=== PATIENT | male | born 2000 | race Caucasian/White ===

== ENCOUNTER 2020-11-29 09:41 | Emergency (ER) | payer OTHER, SELFPAY ==
--- NOTE | ~2020-11-29 | XR_ITS ---
EXAMINATION: XR lumbar spine 2-3V DATE: 11/29/2020 10:55 INDICATION: Low back pain TECHNIQUE: Anteroposterior and lateral views of the lumbar spine, and cone-down lateral view of the l umbosacral junction were obtained. COMPARISON: 01/28/2010 FINDINGS: There is no fracture, dislocation, or subluxation. The vertebral body heights, alignment, a nd intervertebral disc spaces are normal. The paravertebral soft tissues are unremarkable. IMPRESSION: 1. No acute osseous abnormality. Reviewed, dictated and finalized at location B.
[2020-11-29 09:50] VITALS: BP 150/80; PULSE 75; RESP 16; TEMP 37.1; O2SAT 100
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
[2020-11-29 11:36] VITALS: BP 130/60; PULSE 85; RESP 17; O2SAT 100
== END 2020-11-29 11:37 | disposition home or self-care (01) ==
PROVIDERS: Emergency Provider Emergency Medicine; PCP Nurse Practitioner Family
DX: S39.012A Strain of muscle, fascia and tendon of lower back, initial encounter (principal); V43.52XA Car driver injured in collision with other type car in traffic accident, initial encounter
CPT/HCPCS: 72100; 99283

== ENCOUNTER 2023-02-10 00:53 | Emergency (ER) | payer SELFPAY ==
[2023-02-10 00:55] VITALS: BP 122/60; PULSE 76; RESP 15; TEMP 36.6; O2SAT 100
== END 2023-02-10 01:00 | disposition left against medical advice (07) ==
PROVIDERS: PCP Nurse Practitioner Family
DX: S69.90XA Unspecified injury of unspecified wrist, hand and finger(s), initial encounter (principal)
CPT/HCPCS: 99199